=== PATIENT | female | born 2000 | race Caucasian/White ===

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

== ENCOUNTER 2019-07-01 01:16 | Emergency (ER) | payer MEDICAID ==
[~2019-07-01] VITALS: Ht 167.6 cm; Wt 79.3 kg
[2019-07-01] MEDS ORDERED: PHENOL THROAT SPRAY BOTTLE MM ONE (02:00)
[2019-07-01 02:10] LABS: RAPID INFLUENZA A Negative (Negative); RAPID INFLUENZA B Negative (Negative)
[2019-07-01] MEDS ORDERED: DEXAMETHASONE 4 MG TABLET ONE (02:19)
[2019-07-01] MEDS ORDERED: DEXAMETHASONE 4 MG TABLET PO ONE (02:30)
[2019-07-01 02:35] VITALS: BP 132/67
== END 2019-07-01 02:37 | disposition home or self-care (01) ==
LOC: ED 02:05
DX: J02.9 Acute pharyngitis, unspecified (principal); B34.9 Viral infection, unspecified; J45.909 Unspecified asthma, uncomplicated; F17.210 Nicotine dependence, cigarettes, uncomplicated
CPT/HCPCS: 71046; 87081; 87400; 87880; 99284; 99406